=== PATIENT | male | born 1960 | race Caucasian/White ===

== ENCOUNTER 2017-10-16 15:00 | Inpatient (IN) ==
[2017-10-16 16:46] LABS: Appearance,Urine CLEAR; Bilirubin,Urine NEG (NEG); Color,Urine STRAW; Glucose,Urine (UA) NEGATIVE (NEG); Leukocyte Esterase,Urine NEG /uL (NEG); Protein,Urine NEG (NEG); Specific Gravity,Urine 1.005 (1.000-1.035); Urine Blood NEG mg/dL (<0.03); Urobilinogen,Urine NEG (NEG)
[2017-10-16 19:55] LABS: Basophils # (Auto) 0 K/mcL (0.0-0.3); Basophils % (Auto) 0.5 % (0.0-2.0); Eosinophils # (Auto) 0.3 K/mcL (0.0-0.7); Eosinophils % (Auto) 3.6 % (0.0-7.0); Granulocytes % (Auto) 62.4 % (38.0-78.0); Lymphocytes # (Auto) 2.3 K/mcL (1.5-4.8); Lymphocytes % (Auto) 23.6 % (15.5-49.0); Mean Cell Volume 84.3 fL (80.0-100.0); Mean Corpuscular HGB Conc 33.4 g/dL (31.0-36.0); Mean Corpuscular Hemoglobin 28.2 pg (26.0-34.0); Monocytes % (Auto) 9.9 % (1.0-12.0); Platelet Count 191 K/mcL (140-440); RBC 5.87 M/mcL (4.50-5.90); Red Cell Distribution Width 14.5 % (11.5-14.5)
[2017-10-16 20:02] LABS: Blood Urea Nitrogen 15 mg/dl (6-20)
[2017-10-22] MEDS ORDERED: ceFAZolin 1 GM VIAL IV SCH ×2 (06:00→12:00)
[2017-10-22] MEDS ORDERED: CELECOXIB 200 MG CAPSULE PO SCH (09:30)
[2017-10-22] MEDS ORDERED: PREGABALIN 75 MG CAPSULE PO SCH (09:30)
[2017-10-22] MEDS ORDERED: oxyCODONE 10 MG TAB.ER.12H PO SCH (09:30)
[2017-10-22] MEDS: CELECOXIB 200 MG CAPSULE PO SCH ×2 (09:59→10:01)
[2017-10-22] MEDS: oxyCODONE 10 MG TAB.ER.12H PO SCH ×2 (10:00→10:01)
[2017-10-22] MEDS: PREGABALIN 75 MG CAPSULE PO SCH ×2 (10:00→10:01)
[2017-10-22] MEDS ORDERED: GENTAMICIN SULFATE 800 MG/20 ML VIAL IR ONE (12:13)
[2017-10-22] MEDS ORDERED: BUPIVACAINE W/EPI 0.5% 50 ML VIAL IJ ONE (12:25)
[2017-10-22] MEDS ORDERED: MIDAZOLAM 2 MG/2 ML VIAL IV ONE (12:25)
[2017-10-22] MEDS ORDERED: GLYCOPYRROLATE 0.2 MG/ML VIAL IV ONE (12:25)
[2017-10-22] MEDS ORDERED: PROPOFOL 200 MG/20 ML VIAL IV ONE (12:25)
[2017-10-22] MEDS ORDERED: ONDANSETRON 4 MG/2 ML VIAL IV ONE (12:25)
[2017-10-22] MEDS ORDERED: SUCCINYLCHOLINE 20 MG/ML ML IV ONE (12:25)
[2017-10-22] MEDS ORDERED: LIDOCAINE HCL/PF 100 MG/5 ML SYRINGE IV ONE (12:25)
[2017-10-22] MEDS ORDERED: KETAMINE 100 MG/ML ML IV ONE (12:25)
--- NOTE | 2017-10-22 14:09 | Brief Operative Note ---
Date of procedure: 10/22/17 Pre-op diagnosis: left shoulder oa, biceps tendonitis Post-op diagnosis: same Procedure: left total shoulder arthroplasty, biceps tenodesis Grafts/Implants: Yes Anesthesia: GETA Complications: none Surgeon: Humberto Lewis Stretcher Leveler Operator Helper: Pavithra Ervin Estimated blood loss (cc): 100 Specimens Removed/Pathology: none sent Condition: stable Disposition: PACU
[2017-10-22] MEDS ORDERED: ONDANSETRON 4 MG/2 ML VIAL IV PRN ×2 (14:10→14:12)
[2017-10-22] MEDS ORDERED: MAGNESIUM HYDROXIDE 30 ML ORAL.SUSP PO PRN (14:10)
[2017-10-22] MEDS ORDERED: TRANEXAMIC ACID 1,000 MG/10 ML VIAL IV SCH (14:10)
[2017-10-22] MEDS ORDERED: BISACODYL 10 MG SUPP.RECT PR PRN (14:10)
[2017-10-22] MEDS ORDERED: ONDANSETRON ODT 4 MG TABLET SL PRN (14:10)
[2017-10-22] MEDS ORDERED: BENZOCAINE/MENTHOL 1 LOZENGE PO PRN (14:10)
[2017-10-22] MEDS ORDERED: POLYETHYLENE GLYCOL 3350 17 GM PACKET PO PRN (14:10)
[2017-10-22] MEDS ORDERED: METHOCARBAMOL 750 MG TABLET PO PRN (14:10)
[2017-10-22] MEDS ORDERED: FLEETS ADULT ENEMA PR PRN (14:10)
[2017-10-22] MEDS ORDERED: ACETAMINOPHEN 325 MG TABLET PO PRN (14:10)
--- NOTE | 2017-10-22 14:10 | Discharge Summary ---
Ortho Discharge - TSA - Patient Instructions Diet: Regular Diet Activity: non weight bearing Total Shoulder Protocol: Leave immobilizer in place except for bathing and ROM. Abduction pillow. Continue to wear sling until seen by physician. Codman Pendulum : These exercises use momentum produced by your body to move your shoulder joint. Bend your knees and shift your weight to your front leg, then back, allowing your arm to swing in the same directions. Using the same technique, alternately shift your weight between your right and left legs, allowing your arm to swing from side to side. These exercises are also performed in counterclockwise and clockwise circular motions. Typically these exercises are performed several times per day, for a set number repetitions or minutes, such as 20 times in a row or 5 minutes at a time. Dressing Care: May shower in 2 days - Follow Up Plan Disposition: Home, Self-Care Prognosis: Good Rehab Potential: Good I certify that the patient requires SNF services: No Overall status at discharge: patient is progressing back to baseline
[2017-10-22] MEDS ORDERED: fentaNYL 100 MCG/2 ML VIAL IV PRN (14:12)
[2017-10-22] MEDS ORDERED: HYDROmorphone 2 MG/ML VIAL IV PRN (14:12)
[2017-10-22] MEDS ORDERED: METHOCARBAMOL 1,000 MG/10 ML VIAL IV PRN (14:12)
[2017-10-22] MEDS ORDERED: IPRATROPIUM/ALBUTEROL 3 ML AMPUL.NEB NEB PRN (14:12)
[2017-10-22] MEDS ORDERED: MEPERIDINE 25 MG/ML SYRINGE IV PRN (14:12)
[2017-10-22] MEDS ORDERED: ACETAMINOPHEN 1,000 MG/100 ML BOTTLE IV ONE (14:13)
[2017-10-22] MEDS ORDERED: LACTATED RINGERS 1,000 ML IV SCH (14:15)
[2017-10-22] MEDS: KETOROLAC 30 MG/ML VIAL IV PRN (15:14)
--- NOTE | 2017-10-22 15:20 | XRay Report ---
CLINICAL INFORMATION: Reason for Exam:Post-Op Total Shoulder COMPARISON: None. FINDINGS: Shoulder prostheses is anatomically aligned. No osseous abnormality. Soft tissue swelling seen as expected IMPRESSION: Negative Interpreted and Authenticated by: Humberto Corley 10/22/17
--- NOTE | 2017-10-22 15:25 | Operative Note ---
DATE OF OPERATION: 10/22/2017 PREOPERATIVE DIAGNOSES: 1. Left shoulder osteoarthritis. 2. Left shoulder proximal biceps tendonitis. POSTPERATIVE DIAGNOSES: 1. Left shoulder osteoarthritis. 2. Left shoulder proximal biceps tendonitis. PROCEDURE: 1. Left total shoulder arthroplasty. 2. Left shoulder soft tissue biceps tenodesis. SURGEON: Laura Lewis M.D. PROJECT FACILITATOR SURGEON: Pavithra Ervin PA-C ANESTHESIA: General. ESTIMATED BLOOD LOSS: 150 mL COMPLICATIONS: None noted. SPECIMENS REMOVED: None. DRAINS: None. IMPLANTS: DePuy CMW2 bone cement 20 grams x1, DePuy Global anchor peg, Glenoid Premieron X-Link polyethylene size 48, DePuy Global Unite standard humeral head size 48 x 21, DePuy Global Unite anatomic proximal body 135 degrees size 14 Porocoat, DePuy Global Unite Porocoat standard stem size 14. INDICATIONS: The patient has had a long-standing history of worsening pain in the shoulder that has failed conservative treatment. Radiographs have confirmed advanced degenerative joint disease. After a long discussion about treatment options, the patient elected to proceed with a total shoulder arthroplasty. The risks and benefits were discussed with the patient in detail including, but not limited to, the risks of anesthesia, problems with the heart or lungs related to anesthesia, infection, compromise or injury to the nerves and blood vessels, deep venous thrombosis, pulmonary embolism, pneumonia, continued pain after surgery, worsening pain or symptoms after surgery, swelling, loss of motion, instability, fracture, arm length discrepancy, and need for repeat surgery. DESCRIPTION OF PROCEDURE: The patient was seen in the pre-anesthesia waiting room where all questions were answered and the correct side and site were identified and marked. The patient was transferred to the operating room and administered the anesthetic and given pre-operative antibiotics. A time-out was then called. The patient was placed in the modified beach chair position with all prominences well padded. The extremity was prepped and draped from the fingers up to the neck. A standard deltopectoral skin incision was created. Dissection was carried down to the deltopectoral groove and the cephalic vein was isolated medially and retracted laterally with the deltoid. Retractors were placed and the coracobrachialis was split up to the coracoacromial ligament allowing retraction of the conjoined tendon. We split the subscapularis 1 cm medial to the bicipital groove and extended the split into the rotator interval. This was tagged for later repair. The biceps was cut and a soft tissue tenodesis was performed into the anterior shoulder with #2 FiberWire. A capsular release was performed in a posterior subperiosteal direction along the humerus. The humeral head was then dislocated. We established intramedullary access and hand reamed up to get good cortical chatter with the DePuy Global AP total shoulder instrumentation. We then used the intramedullary guide and set to about 30 degrees of retroversion. The proximal humerus cut was performed and osteophytes were removed. A metal protector plate was then placed. Attention was then turned to the glenoid. Retractors were placed for optimal visualization and the labrum was excised in its entirety. A centralizing Steinmann pin was placed just into the posterior inferior quadrant in a standard fashion. We reamed over the pin to remove all the cartilage and get to a good base for the prosthesis. The drill was then placed over for the central peg. The glenoid was sized and surface was inspected to confirm conformity. The template base-plate was used to drill the three additional pegs, anchoring each with the anti-rotation peg. All bleeding was stopped with epinephrine soaked sponges. Next, we then cemented the anchor peg glenoid with DBX bone paste placed around the anchor peg and Palacos cement in the three additional peg holes. We allowed the cement to harden and checked the stability and placement of the glenoid. Attention was then turned back to the humerus. We set version and broached up to a stable implant. The humeral head trial was placed and good tension, motion, and stability were obtained at this point. Trials were removed and the final press fit humeral prosthesis was impacted into place with measured version. A final check confirmed adequate motion, tension, and stability. We irrigated with 3 liters of antibiotic saline and closed the subscapularis with #2 FiberWire. We irrigated again and closed the deltopectoral interval with several 0 Vicryl figure of eight sutures. The subcutaneous layer was closed with 2-0 Vicryl and the skin was closed with 4-0 Monocryl in a subcuticular fashion. A sterile pressure dressing was applied and the patient was placed into an abduction sling. All needle and sponge counts were correct. The patient was transferred to the recovery room in stable condition. ADOLFO:jair Job ID: [id number] Doc ID: [id number] Laura Lewis MD
[2017-10-22] MEDS: 0.9 % SODIUM CHLORIDE 1,000 ML IV SCH (15:51)
[2017-10-22] MEDS ORDERED: SENNOSIDES 1 TABLET PO SCH (21:00)
[2017-10-22] MEDS: ceFAZolin 1 GM VIAL IV SCH (21:35)
[2017-10-22] MEDS: DOCUSATE SODIUM 100 MG CAPSULE PO SCH (21:35)
[2017-10-22] MEDS: 0.9 % SODIUM CHLORIDE 10 ML SYRINGE IV SCH (22:12)
[2017-10-23] MEDS: KETOROLAC 30 MG/ML VIAL IV PRN ×2 (00:18→10:02)
[2017-10-23] MEDS: oxyCODONE/APAP 5/325MG TABLET PO PRN ×2 (00:18→06:52)
[2017-10-23] MEDS: 0.9 % SODIUM CHLORIDE 1,000 ML IV SCH ×2 (00:20→06:55)
[2017-10-23] MEDS: 0.9 % SODIUM CHLORIDE 10 ML SYRINGE IV SCH (05:27)
[2017-10-23] MEDS: ceFAZolin 1 GM VIAL IV SCH (05:27)
--- NOTE | 2017-10-23 06:31 | Orthopedic Progress Note ---
Subjective Patient information: Note initiated : 10/23/17 at 6:29 am Service Date, if different from initiated Date: [] Patient: Benitez Nickerson 57 y/o M admitted on 10/22/17 for Left Total Shoulder Arthroplasty with Bicep Tendon. Chief Complaint: [POD #1 s/p left TSA Doing very well. Some numbness over deltoid and left thumb. Denies CP, SOB, tingling, extreme pain. Has no questions or concerns this morning.] Objective Vital signs: Vital Signs Temp Pulse Pulse Resp BP BP Pulse Ox 10/23/17 03:25 97.7 F 51 L 18 108/67 97 10/23/17 00:00 97.8 F 43 L 18 123/72 98 10/22/17 20:00 56 L 16 10/22/17 18:32 48 L 116/76 96 10/22/17 17:30 57 L 16 131/84 98 10/22/17 17:00 57 L 16 126/81 96 10/22/17 16:30 45 L 16 118/72 96 10/22/17 16:17 47 L 16 124/78 96 10/22/17 16:00 60 16 138/87 97 10/22/17 15:47 51 L 16 143/82 96 10/22/17 15:30 97.7 F 59 L 16 128/79 92 10/22/17 15:17 55 L 21 136/78 95 10/22/17 15:12 53 L 18 136/80 99 10/22/17 15:07 56 L 17 141/84 99 10/22/17 15:00 55 L 16 121/77 99 10/22/17 14:55 60 15 142/82 99 10/22/17 14:50 56 L 18 121/69 99 10/22/17 14:45 49 L 17 102/63 99 10/22/17 14:40 47 L 14 89/51 99 10/22/17 14:35 45 L 15 80/48 96 10/22/17 14:30 96.7 F L 51 L 16 86/52 95 10/22/17 09:23 97.8 F 60 18 121/78 95 Intake and Output 10/22/17 10/23/17 10/23/17 21:59 05:59 13:59 Intake Total 2140 / 2140 2180 / 2180 Output Total 485 / 485 450 / 450 Balance 1655 / 1655 1730 / 1730 Intake: IV 1700 / 1700 1000 / 1000 Sodium Chloride 0.9% 1,000 ml @ 1000 / 1000 125 mls/hr IV .Q8H [facility] Rx#: [id number] Lactated Ringers 1,000 ml @ 20 1700 / 1700 mls/hr IV .Q24H [facility] Rx#: [id number] Oral 440 / 440 1180 / 1180 Output: Void Amount 400 / 400 450 / 450 Estimated Blood Loss 85 / 85 Other: Meal Dinner Percent of Meal Consumed 100% Feeding Ability Independent Weight 245 lb Intake & Output: Intake & Output 10/22/17 10/23/17 10/23/17 21:59 05:59 13:59 Intake Total 2140 / 2140 2180 / 2180 Output Total 485 / 485 450 / 450 Balance 1655 / 1655 1730 / 1730 Weight 245 lb Intake: IV 1700 / 1700 1000 / 1000 Sodium Chloride 0.9% 1,000 ml @ 1000 / 1000 125 mls/hr IV .Q8H [facility] Rx#: [id number] Lactated Ringers 1,000 ml @ 20 1700 / 1700 mls/hr IV .Q24H [facility] Rx#: [id number] Oral 440 / 440 1180 / 1180 Output: Void Amount 400 / 400 450 / 450 Estimated Blood Loss 85 / 85 Other: Meal Dinner Percent of Meal Consumed 100% Feeding Ability Independent Incision: Yes healing, No draining, No red, No swollen, No inflamed, Yes clean and dry Incision clean and dry: Yes Dressing: Yes clean, Yes dry, Yes intact, Yes splint in place Weight bearing status: non Range of motion: full AROM left elbow/wrist/hand Neurological exam IM: Yes alert, Yes oriented X3, Yes motor sensory intact Additional Comments: mild altered sensation over left dorsal thumb. All else intact to light touch. Cap refill < 3 sec. Radial pulses 2+ Extremities exam IM: Yes Foot pink and warm, Yes neurovascular intact - Periperhal Pulses Peripheral pulses: 2+: radial (L), radial (R) - Diagnostic Results Shoulder x-ray: image reviewed - Labs CBC & BMP: 10/23/17 05:05 10/16/17 15:39 Labs: Orthopedic Labs 10/16/17 15:39 PT 13.0 INR 1.0 10/23/17 10/16/17 05:05 15:39 Hgb 13.7 16.5 Hct 41.0 49.5 Assessment and Plan (1) Osteoarthritis, shoulder Assessment: POD #1 s/p left TSA Plan: -d/c to home today -has Hydrocodone at home already, does not want refill. Gave muscle relaxers -NWB with shoulder -begin PT -follow up office in 10-14 days Status: Acute
[2017-10-23] MEDS ORDERED: HYDROCHLOROTHIAZIDE 12.5 MG CAPSULE PO SCH (09:00)
[2017-10-23] MEDS ORDERED: VALSARTAN PO SCH (09:00)
[2017-10-23] MEDS ORDERED: OLMESARTAN MEDOXOMIL 20 MG TABLET PO SCH (09:00)
[2017-10-23] MEDS ORDERED: ASPIRIN 81 MG TAB.CHEW PO SCH (09:00)
[2017-10-23] MEDS ORDERED: HYDROCHLOROTHIAZIDE PO SCH (09:00)
[2017-10-23] MEDS ORDERED: amLODIPine 10 MG TABLET PO SCH (09:00)
[2017-10-23] MEDS ORDERED: [UNRECOGNIZED DRUG - OTHER] PO SCH (09:00)
[2017-10-23] MEDS: DOCUSATE SODIUM 100 MG CAPSULE PO SCH (10:02)
== END 2017-10-23 11:24 | disposition home or self-care (01) | DRG 483 ==
LOC: MEDSUR 10-22 08:52
PROVIDERS: ADMIT Orthopaedic Surgery Sports Medicine; ATTEND Orthopaedic Surgery Sports Medicine